=== PATIENT | female | born 1995 | race Two or more races ===

== ENCOUNTER 2018-07-26 07:29 | Emergency (ER) | END 2018-07-26 09:55 | disposition home or self-care (01) ==

== ENCOUNTER 2018-09-01 08:40 | Emergency (ER) | END 2018-09-01 17:20 | disposition short-term general hospital (02) ==

== ENCOUNTER 2018-10-25 21:16 | Emergency (ER) | END 2018-10-25 22:44 | disposition home or self-care (01) ==

== ENCOUNTER 2018-11-19 17:20 | Emergency (ER) | payer OTHER ==
[~2018-11-19] VITALS: Ht 162.6 cm; Wt 120.5 kg
[~2018-11-19 17:20] MED LIST: HYDR-4011 PO; IBUP-1542 PO; MAG355OR14 PO; OMEP20CA16 PO
[2018-11-19 17:24] VITALS: BP 148/85; PULSE 83; RESP 18; Ht 162.6 cm; Wt 120.5 kg
[2018-11-19] MEDS ORDERED: KETOROLAC 30 MG INJ IM STA (19:29)
[2018-11-19] MEDS ORDERED: CYCL10TA7 PO (19:49)
[2018-11-19] MEDS ORDERED: IBUP800T48 PO (19:49)
--- NOTE | 2018-11-19 19:54 | ERD ---
ER Documentation Chief Complaint Chief Complaint lt jaw pain radiating to lt arm x 3 hrs HPI Patient is a 23-year-old female who presents with pain in the left side of her jaw that radiates to her left upper extremity. She has had this for about a week. She did go to an outside facility and they told her likely months with multiple without any relief. No fever. No trauma. No numbness or tingling. ROS All systems reviewed and are negative except as per history of present illness. Medications Home Meds Active Scripts Ibuprofen* (Motrin*) 800 Mg Tab, 800 MG PO Q6, #30 TAB Prov:ANGELO ESCALERA PA-C 11/19/18 Cyclobenzaprine Hcl* (Cyclobenzaprine Hcl*) 10 Mg Tablet, 10 MG PO TID, #15 TAB Prov:ANGELO ESCALERA PA-C 11/19/18 Omeprazole* (Omeprazole*) 20 Mg Capsule.dr, 20 MG PO DAILY, #14 CAP Prov:GINI DAVILA MD 10/25/18 Mag Hydrox/Al Hydrox/Simeth (Maalox Advanced Suspension) 355 Ml Oral.susp, 2 TSP PO TID PRN for PAIN, #24 OZ Prov:GINI DAVILA MD 10/25/18 Hydrocodone/Acetaminophen ([place] 5-325 Tablet) 1 Each Tablet, 1 TAB PO Q6H PRN for PAIN, #7 TAB Prov:SAVANAH GARCIA PA-C 07/26/18 Ibuprofen* (Motrin*) 600 Mg Tab, 600 MG PO Q6, #30 TAB Prov:SAVANAH GARCIA PA-C 07/26/18 Allergies Allergies: Coded Allergies: No Known Allergy (Unverified , 07/26/18) PMhx/Soc History of Surgery: Yes (Cholecystectomy) Anesthesia Reaction: No Hx Neurological Disorder: No Hx Respiratory Disorders: No Hx Cardiac Disorders: No Hx Psychiatric Problems: No Hx Miscellaneous Medical Probl: Yes (GALLSTONES) Hx Alcohol Use: No Hx Substance Use: No Hx Tobacco Use: No Smoking Status: Never smoker FmHx Family History: No diabetes Physical Exam Vitals Vital Signs Date Temp Pulse Resp B/P (MAP) Pulse Ox O2 O2 Flow FiO2 Time Delivery Rate 11/19/18 99.0 83 18 148/85 98 17:24 (106) Physical Exam INITIAL VITAL SIGNS: Reviewed by me GENERAL: Awake, alert and oriented x 4, well appearing, nontoxic, speaking in full sentences. No acute distress HEAD: Atraumatic NECK: Supple. No masses. Full range of motion. No meningismus. No midline tenderness. RESPIRATORY: Clear to auscultation bilaterally. Symmetric chest wall rise. No wheezing or rales. No accessory muscle use. CV: Regular rate and rhythm. No murmurs, rubs, or gallops. Upper Extremity -left Skin: No laceration, or evidence of external trauma Compartments: Soft Motor: Full active range of motion shoulder/elbow/wrist/hand Sensation: Intact shoulder/pinky/middle finger/thumb web space Bones: Nontender humerus/elbow/forearm/wrist/hand Snuffbox: Nontender Joints: No effusion Pulses/Perfusion: 2+ radial, Capillary refill < 2 seconds Results 24 hrs Laboratory Tests Test 11/19/18 19:45 POC Beta HCG, Qualitative NEGATIVE Current Medications Medications Dose Sig/Emelia Start Time Status Last (Trade) Ordered Route PRN Stop Time Admin Dose Reason Admin Ketorolac 30 mg ONCE STAT 11/19/18 DC Tromethamine IM 19:29 (Toradol) 11/19/18 19:30 Procedures/MDM Patient is here with pain in the left side of her neck radiating to her left repair extremity. Exam is normal. I agree with what she was told at the other facility her pain is most likely musculoskeletal. She was given Toradol here and prescription for Flexeril and ibuprofen. Patient counseled regarding my diagnostic impression and care plan. Prior to discharge all questions answered. Pt agrees with treatment plan and understands strict return precautions. Pt is instructed to follow up with primary care provider within 24-48 hours. Precautionary instructions provided including instructions to return to the ER if not improving or for any worsening or changing symptoms or concerns. Departure Diagnosis: Primary Impression: Myalgia Additional Impression: Jaw pain Condition: Stable Patient Instructions: Myalgias Additional Instructions: Call your primary care doctor TOMORROW for an appointment during the next 1-2 days.See the doctor sooner or return here if your condition worsens before your appointment time. ANGELO ESCALERA PA-C Nov 19, 2018 19:54
== END 2018-11-19 20:09 | disposition home or self-care (01) ==
LOC: FTE 17:20
DX: M79.18 Myalgia, other site (principal)
CPT/HCPCS: 81025; 96372; J1885; Z7502

== ENCOUNTER 2019-03-16 08:14 | Emergency (ER) | payer OTHER ==
[~2019-03-16] VITALS: Ht 165.1 cm; Wt 122.4 kg
[~2019-03-16 08:14] MED LIST changes: +CYCL10TA7 PO; +IBUP800T48 PO
[2019-03-16 08:20] VITALS: Ht 165.1 cm; Wt 122.4 kg
[2019-03-16] MEDS ORDERED: SOD CHLORIDE 0.9% 1,000 ML IV STA (09:34)
[2019-03-16] MEDS ORDERED: ONDANSETRON 4 MG INJ IV STA (09:34)
[2019-03-16] MEDS ORDERED: KETOROLAC 30 MG INJ IV STA (09:34)
[2019-03-16] MEDS ORDERED: FAMOTIDINE 20 MG INJ IV STA (09:34)
[2019-03-16] MEDS ORDERED: HYDR-4011 PO (10:42)
[2019-03-16] MEDS ORDERED: FAMO-96 PO (10:42)
[2019-03-16 11:47] VITALS: BP 124/71; PULSE 70; RESP 16
--- NOTE | 2019-03-16 14:12 | ERD ---
ER Documentation Chief Complaint Chief Complaint upper abdominal pain this morning, + nausea HPI 23-year-old female presenting with abdominal pain this morning with nausea. Patient has some epigastric pain. She has had a history of cholecystectomy and states that her pain today is similar. She denies any chest pain or shortness of breath. Denies fevers. Took Tums yesterday but no medications today. Has nausea but no vomiting. Patient has diarrhea. Denies medical problems. NKDA. Surgical history cholecystectomy. Social history denies ROS All systems reviewed and are negative except as per history of present illness. Medications Home Meds Active Scripts Hydrocodone/Acetaminophen ([place] 5-325 Tablet) 1 Each Tablet, 1 TAB PO Q6H PRN for PAIN, #7 TAB Prov:DALLAS JIMENEZ PA-C 03/16/19 Famotidine* (Pepcid*) 20 Mg Tablet, 20 MG PO BID for 4 Days, #30 TAB Prov:DALLAS JIMENEZ PA-C 03/16/19 Ibuprofen* (Motrin*) 800 Mg Tab, 800 MG PO Q6, #30 TAB Prov:ANGELO ESCALERA PA-C 11/19/18 Cyclobenzaprine Hcl* (Cyclobenzaprine Hcl*) 10 Mg Tablet, 10 MG PO TID, #15 TAB Prov:ANGELO ESCALERA PA-C 11/19/18 Omeprazole* (Omeprazole*) 20 Mg Capsule.dr, 20 MG PO DAILY, #14 CAP Prov:GINI DAVILA MD 10/25/18 Mag Hydrox/Al Hydrox/Simeth (Maalox Advanced Suspension) 355 Ml Oral.susp, 2 TSP PO TID PRN for PAIN, #24 OZ Prov:GINI DAVILA MD 10/25/18 Hydrocodone/Acetaminophen ([place] 5-325 Tablet) 1 Each Tablet, 1 TAB PO Q6H PRN for PAIN, #7 TAB Prov:SAVANAH GARCIA PA-C 07/26/18 Ibuprofen* (Motrin*) 600 Mg Tab, 600 MG PO Q6, #30 TAB Prov:SAVANAH GARCIA PA-C 07/26/18 Allergies Allergies: Coded Allergies: No Known Allergy (Unverified , 07/26/18) PMhx/Soc History of Surgery: Yes (Cholecystectomy) Anesthesia Reaction: No Hx Neurological Disorder: No Hx Respiratory Disorders: No Hx Cardiac Disorders: No Hx Psychiatric Problems: No Hx Miscellaneous Medical Probl: Yes (GALLSTONES) Hx Alcohol Use: No Hx Substance Use: No Hx Tobacco Use: No FmHx Family History: No diabetes, No coronary disease, No other Physical Exam Vitals Vital Signs Date Temp Pulse Resp B/P (MAP) Pulse Ox O2 O2 Flow FiO2 Time Delivery Rate 03/16/19 98.1 70 16 124/71 96 Room Air 11:47 (88) 03/16/19 98.7 70 18 134/66 99 08:20 (88) Physical Exam GENERAL: The patient is well-appearing, well-nourished, in no acute distress CHEST: Clear to auscultation bilaterally. There are no rales, wheezes or rhonchi. HEART: Regular rate and rhythm. No murmurs, clicks, rubs or gallops. ABDOMEN: Normal active bowel sounds. No distention. No organomegaly. Tender to palpation in the epigastric region with no rebound tenderness. Result Diagram: 03/16/19 0956 03/16/19 0956 Results 24 hrs Laboratory Tests Test 03/16/19 09:56 03/16/19 10:02 White Blood Count 12.2 10^3/ul Red Blood Count 4.74 10^6/ul Hemoglobin 11.7 g/dl Hematocrit 37.7 % Mean Corpuscular Volume 79.5 fl Mean Corpuscular Hemoglobin 24.7 pg Mean Corpuscular Hemoglobin Concent 31.0 g/dl Red Cell Distribution Width 16.0 % Platelet Count 369 10^3/UL Mean Platelet Volume 9.3 fl Immature Granulocytes % 0.500 % Neutrophils % 64.4 % Lymphocytes % 28.7 % Monocytes % 4.6 % Eosinophils % 1.4 % Basophils % 0.4 % Nucleated Red Blood Cells % 0.0 /100WBC Immature Granulocytes # 0.060 10^3/ul Neutrophils # 7.8 10^3/ul Lymphocytes # 3.5 10^3/ul Monocytes # 0.6 10^3/ul Eosinophils # 0.2 10^3/ul Basophils # 0.1 10^3/ul Nucleated Red Blood Cells # 0.0 10^3/ul Urine Color STRAW Urine Clarity CLEAR Urine pH 7.0 Urine Specific [place] 1.009 Urine Ketones NEGATIVE mg/dL Urine Nitrite NEGATIVE mg/dL Urine Bilirubin NEGATIVE mg/dL Urine Urobilinogen NEGATIVE mg/dL Urine Leukocyte Esterase 1+ Phan/ul Urine Microscopic RBC 1 /HPF Urine Microscopic WBC 8 /HPF Urine Squamous Epithelial Cells FEW /HPF Urine Bacteria FEW /HPF Urine Hemoglobin NEGATIVE mg/dL Urine Glucose NEGATIVE mg/dL Urine Total Protein NEGATIVE mg/dl Sodium Level 141 mmol/L Potassium Level 4.3 mmol/L Chloride Level 104 mmol/L Carbon Dioxide Level 27 mmol/L Anion Gap 10 Blood Urea Nitrogen 9 mg/dl Creatinine 0.54 mg/dl Est Glomerular Filtrat Rate mL/min > 60 mL/min Glucose Level 120 mg/dl Calcium Level 9.4 mg/dl Total Bilirubin 0.3 mg/dl Direct Bilirubin 0.00 mg/dl Indirect Bilirubin 0.3 mg/dl Aspartate Amino Transf (AST/SGOT) 40 IU/L Alanine Aminotransferase (ALT/SGPT) 46 IU/L Alkaline Phosphatase 111 IU/L Total Protein 8.4 g/dl Albumin 4.3 g/dl Globulin 4.10 g/dl Albumin/Globulin Ratio 1.04 Lipase 58 U/L POC Beta HCG, Qualitative NEGATIVE Current Medications Medications Dose Sig/Emelia Start Time Status Last (Trade) Ordered Route PRN Stop Time Admin Dose Reason Admin Sodium 1,000 ml @ Q1H STAT 03/16/19 DC 03/16/19 Chloride 1,000 mls/hr IV 09:34 10:04 03/16/19 10:33 Ondansetron 4 mg ONCE STAT 03/16/19 DC 03/16/19 HCl (Zofran IV 09:34 10:05 Inj) 03/16/19 09:36 Famotidine 20 mg ONCE STAT 03/16/19 DC 03/16/19 (Pepcid Iv) IV 09:34 10:05 03/16/19 09:36 Ketorolac 30 mg ONCE STAT 03/16/19 DC 03/16/19 Tromethamine IV 09:34 10:48 (Toradol) 03/16/19 09:36 Procedures/MDM DIAGNOSTIC IMAGING REPORT Patient: HAILEY PALACIOS : 1995 Age: 23 Sex: F MR #: [id number] DOS: 03/16/19 0934 Ordering MD: TATUM JIMENEZ PA-C Location: [facility] Room/Bed: PROCEDURE: US Abdomen. CLINICAL INDICATION: abdominal pain TECHNIQUE: Multiple real-time images were acquired of the patient's right upper quadrant abdomen and retroperitoneum utilizing a high resolution transducer. COMPARISON: US ABDOMEN 09/01/2018 FINDINGS: The liver demonstrates increased echogenicity. The liver is enlarged in size and no focal solid lesions are seen. The liver measures 19.7 cm in length. The portal vein is patent with normal direction of flow. No intrahepatic biliary dilatation is seen. The patient is status post cholecystectomy. The common bile duct measures 6 mm in maximal dimension. The pancreas is not well seen due to overlying bowel gas. No free fluid is identified. The right kidney is normal in size, and demonstrate normal echogenicity and cortical thickness. The right kidney measures 11.1 cm in long dimension. There is no evidence of hydronephrosis. There are no kidney stones. RPTAT: AA IMPRESSION: Hepatomegaly with diffuse fatty infiltration of the liver. Status post cholecystectomy with physiologic dilatation of the CBD. MDM: 23-year-old female presenting with epigastric pain. Patient's blood work is within normal limits. I have low suspicion for abnormality associated with common bile duct or pancreas. Patient's blood work and imaging is within normal limits. Patient likely has GERD. Patient's symptoms had resolved on my evaluation. Patient is discharged with strict ER precautions and told to follow-up with primary care within 1 to 2 days for close evaluation. Patient is told if symptoms change or worsen to return immediately to the ER. All questions answered at discharge Departure Diagnosis: Primary Impression: Epigastric pain Condition: Stable Patient Instructions: Epigastric Pain (Uncertain Cause) Referrals: [facility] YOU HAVE RECEIVED A MEDICAL SCREENING EXAM AND THE RESULTS INDICATE THAT YOU DO NOT HAVE A CONDITION THAT REQUIRES URGENT TREATMENT IN THE EMERGENCY DEPARTMENT. FURTHER EVALUATION AND TREATMENT OF YOUR CONDITION CAN WAIT UNTIL YOU ARE SEEN IN YOUR DOCTORS OFFICE WITHIN THE NEXT 1-2 DAYS. IT IS YOUR RESPONSIBILITY TO M OLEG AN APPOINTMENT FOR FOLOW-UP CARE. IF YOU HAVE A PRIMARY DOCTOR --you should call your primary doctor and schedule an appointment IF YOU DO NOT HAVE A PRIMARY DOCTOR YOU CAN CALL OUR PHYSICIAN REFERRAL HOTLINE AT IF YOU CAN NOT AFFORD TO SEE A PHYSICIAN YOU CAN CHOSE FROM THE FOLLOWING [facility] [address] [facility]. [facility] [address] [facility] [address] [facility] [address] [facility] [address] [facility] [facility] [address] Additional Instructions: FOLLOW UP WITH YOUR PRIMARY CARE PHYSICIAN TOMORROW.Return to this facility if you are not improving as expected. DALLAS JIMENEZ PA-C March 16, 2019 14:12
== END 2019-03-16 11:48 | disposition home or self-care (01) ==
LOC: FTE 08:14
DX: R10.13 Epigastric pain (principal); R11.0 Nausea
CPT/HCPCS: 36415; 76705; 80053; 81001; 81025; 83690; 85025; 96374; 96375; J1885; J2405; J7030; Z7502; Z7610

== ENCOUNTER 2019-03-23 20:16 | Emergency (ER) | payer OTHER ==
[~2019-03-23] VITALS: Ht 167.6 cm; Wt 120.8 kg
[~2019-03-23 20:16] MED LIST changes: +FAMO-96 PO
[2019-03-23 20:20] VITALS: Ht 167.6 cm; Wt 120.8 kg
[2019-03-23] MEDS ORDERED: RANITIDINE 150 MG TAB PO ONE (23:30)
[2019-03-23] MEDS ORDERED: LIDOCAINE/MYLANTA 40 ML BTL PO ONE (23:30)
[2019-03-24] MEDS ORDERED: OMEP20CA16 PO (00:27)
[2019-03-24] MEDS ORDERED: RANI150T35 PO (00:27)
[2019-03-24 00:45] VITALS: BP 130/77; PULSE 84; RESP 19
--- NOTE | 2019-03-24 05:42 | ERD ---
ER Documentation Chief Complaint Chief Complaint CWP/ FEELING OF LUMP IN THROAT; RECENT DX ACID REFLUX HPI 23-year-old female with past medical history of GERD presenting to the emergency department with complaints of left upper chest pain with radiation to her throat for the past 2 days. She states she feels "something stuck" in the throat. Pain is intermittent. She has no pain currently. She feels significant burning in her chest and throat. She has been taking omeprazole at home with mild relief. She denies any nausea, vomiting, abdominal pain, fevers, or other symptoms at this time. ROS All systems reviewed and are negative except as per history of present illness. Medications Home Meds Active Scripts Ranitidine Hcl* (Zantac*) 150 Mg Tablet, 150 MG PO BID PRN for EPIGASTRIC PAIN, #30 TAB Prov:PAPA DOE PA-C 03/24/19 Omeprazole* (Omeprazole*) 20 Mg Capsule., 20 MG PO DAILY, #20 Prov:PAPA DOE PA-C 03/24/19 Hydrocodone/Acetaminophen ([place] 5-325 Tablet) 1 Each Tablet, 1 TAB PO Q6H PRN for PAIN, #7 TAB Prov:DALLAS JIMENEZ PA-C 03/16/19 Famotidine* (Pepcid*) 20 Mg Tablet, 20 MG PO BID for 4 Days, #30 TAB Prov:DALLAS JIMENEZ PA-C 03/16/19 Ibuprofen* (Motrin*) 800 Mg Tab, 800 MG PO Q6, #30 TAB Prov:ANGELO ESCALERA PA-C 11/19/18 Cyclobenzaprine Hcl* (Cyclobenzaprine Hcl*) 10 Mg Tablet, 10 MG PO TID, #15 TAB Prov:ANGELO ESCALERA PA-C 11/19/18 Omeprazole* (Omeprazole*) 20 Mg Capsule., 20 MG PO DAILY, #14 CAP Prov:GINI DAVILA MD 10/25/18 Mag Hydrox/Al Hydrox/Simeth (Maalox Advanced Suspension) 355 Ml Oral.susp, 2 TSP PO TID PRN for PAIN, #24 OZ Prov:GINI DAVILA MD 10/25/18 Hydrocodone/Acetaminophen ([place] 5-325 Tablet) 1 Each Tablet, 1 TAB PO Q6H PRN for PAIN, #7 TAB Prov:GAYLE GARCIACASSIDY CABRERA 07/26/18 Ibuprofen* (Motrin*) 600 Mg Tab, 600 MG PO Q6, #30 TAB Prov:SAVANAH GARCIA DEBORAH 07/26/18 Allergies Allergies: Coded Allergies: No Known Allergy (Unverified , 07/26/18) PMhx/Soc History of Surgery: Yes (Cholecystectomy) Anesthesia Reaction: No Hx Neurological Disorder: No Hx Respiratory Disorders: No Hx Cardiac Disorders: No Hx Psychiatric Problems: No Hx Miscellaneous Medical Probl: Yes (GALLSTONES) Hx Alcohol Use: No Hx Substance Use: No Hx Tobacco Use: No FmHx Family History: No diabetes Physical Exam Vitals Vital Signs Date Temp Pulse Resp B/P (MAP) Pulse Ox O2 O2 Flow FiO2 Time Delivery Rate 03/24/19 98.2 84 19 130/77 100 Room Air 00:45 (94) 03/23/19 98.1 94 18 150/81 99 20:20 (104) Physical Exam Const: No acute distress Head: Atraumatic Eyes: Normal Conjunctiva ENT: Normal External Ears, Nose and Mouth. Neck: Full range of motion. No meningismus. Resp: Clear to auscultation bilaterally Cardio: Regular rate and rhythm, no murmurs Abd: Soft, non tender, non distended. Normal bowel sounds. No rebound tenderness or guarding. No McBurney's point tenderness. Skin: No petechiae or rashes Back: No midline or flank tenderness Ext: No cyanosis, or edema Neur: Awake and alert Psych: Normal Mood and Affect Results 24 hrs Current Medications Medications Dose Sig/Emelia Start Time Status Last (Trade) Ordered Route PRN Stop Time Admin Dose Reason Admin Ranitidine 150 mg ONCE ONCE 03/23/19 DC 03/23/19 HCl PO 23:30 23:31 (Zantac) 03/23/19 23:31 40 ml ONCE ONCE 03/23/19 DC 03/23/19 Miscellaneous PO 23:30 23:09 Medication 03/23/19 23:31 (Gi Cocktail (2)) [address] [address] Radiology Main Line: [phone] DIAGNOSTIC IMAGING REPORT Patient: HAILEY PALACIOS : 1995 Age: 23 Sex: F MR #: [id number] DOS: 03/23/19 0000 Ordering MD: PAPA DOE PA-C Location: [facility] Room/Bed: PROCEDURE: Portable chest x-ray. CLINICAL INDICATION: Chest pain. TECHNIQUE: Portable AP view of the chest. COMPARISON: None. FINDINGS: No pulmonary edema or conolidation is identified. The cardiac silhouette is magnified. No pleural effusion is seen. There is no pneumothorax. IMPRESSION: No evidence of acute cardiopulmonary disease. RPTAT: HTAR .Sathish Fernández MD, Date Time Electronically viewed and signed by .Sathish Fernández MD, MD on 03/23/2019 23:54 .R/ CC: PAPA DOE PA-C [id number] [place] [address] Radiology Main Line: [phone] DIAGNOSTIC IMAGING REPORT Patient: HAILEY PALACIOS : 1995 Age: 23 Sex: F MR #: [id number] DOS: 03/23/19 0000 Ordering MD: PAPA DOE PA-C Location: [facility] Room/Bed: PROCEDURE: X-ray neck CLINICAL INDICATION: Foreign body sensation in the throat. TECHNIQUE: AP and lateral views of the neck. COMPARISON: None available FINDINGS: The aerodigestive tract is normal. No radiopaque foreign body is identified. There is no prevertebral soft tissue swelling. The cervical spine is unremarkable. IMPRESSION: Normal appearance of the aerodigestive tract. No radiopaque foreign body. RPTAT: HTAR .Sathish Fernández MD, MD Date Time Electronically viewed and signed by .Sathish Fernández MD, on 03/23/2019 23:53 .R/ CC: PAPA DOE PA-C [id number] Procedures/MDM 23-year-old female presenting to the emergency department with signs and symptoms most consistent with chest wall pain versus GERD. Chest x-ray negative for any signs of infiltrate or other abnormalities per the patient was administered ranitidine and GI cocktail with significant improvement of her symptoms. EKG: Interpreted by ED physician. Rate/Rhythm: Normal Sinus Rhythm with a rate of [address]pm[address] QRS, ST, T-waves: No changes consistent w/ acute ischemia Impression: No evidence of ischemia or arrhythmia Patient's thoracic symptoms have stabilized while in the department and are stable for outpatient follow up. Exam and work up not consistent w/ ischemia, arrhythmia, PE or dissection. No evidence of life-threatening pathology at time of discharge. Pt/family in agreement with discharge plan/diagnosis. Pt/family advised to return immediately with any new or worsening symptoms. Follow-up with primary care physician within the next 1-2 days. Patient's blood pressure was elevated (>120/80) but appears stable without evidence of hypertension emergency or urgency. The patient is to follow-up and pursue outpatient monitoring and therapy with their primary care physician within 1 week and return immediately if they have any new, worsening, or concerning symptoms. Disclaimer: Inadvertent spelling and grammatical errors are likely due to EHR/dictation software use and do not reflect on the overall quality of patient care. Also, please note that the electronic time recorded on this note does not necessarily reflect the actual time of the patient encounter. Departure Diagnosis: Primary Impression: Chest wall pain Additional Impression: GERD (gastroesophageal reflux disease) Condition: Fair Patient Instructions: Chest Wall Pain, Costochondritis, Gerd (Adult) Additional Instructions: Call your primary care doctor TOMORROW for an appointment during the next 1-2 days.See the doctor sooner or return here if your condition worsens before your appointment time. PAPA DOE PA-C March 24, 2019 05:42
== END 2019-03-24 00:47 | disposition home or self-care (01) ==
LOC: FTE 20:16
DX: K21.9 Gastro-esophageal reflux disease without esophagitis (principal)
CPT/HCPCS: 70360; 71045; 93005; Z7502; Z7610

== ENCOUNTER 2019-05-18 19:23 | Emergency (ER) | payer OTHER ==
[~2019-05-18] VITALS: Ht 165.1 cm; Wt 122.2 kg
[~2019-05-18 19:23] MED LIST changes: +RANI150T35 PO
[2019-05-18 19:26] VITALS: Ht 165.1 cm; Wt 122.2 kg
[2019-05-18] MEDS ORDERED: IBUPROFEN 800 MG TAB PO ONE (20:00)
[2019-05-18] MEDS ORDERED: NICARDipine HCL 30 MG CAPSULE PO ONE (20:00)
[2019-05-18] MEDS ORDERED: IBUP-1542 PO (21:08)
--- NOTE | 2019-05-18 21:12 | ERD ---
ER Documentation Chief Complaint Chief Complaint CP, L SHOULDER PAIN, JAW PAIN, SOB X'S 1 WEEK HPI Patient is a 23-year-old female with anxiety who presents saying that she is "not feeling well". She said that this is been there for 1 week. She said that she has chest pain after eating. She felt pain in her jaw and shoulder as well. She had no treatment as of yet. She has no fevers. Upon review of old medical records this is the patient's seventh visit to the ER since July 2018. Review of the emergency department information exchange system shows visits to 2 separate emergency departments for a total of 9 visits over the past 1 year. She says that she does have a primary doctor in [place]. ROS All systems reviewed and are negative except as per history of present illness. Medications Home Meds Active Scripts Ibuprofen* (Motrin*) 600 Mg Tab, 600 MG PO Q6H PRN for PAIN AND OR ELEVATED TEMP, #30 TAB Prov:ISAEL GUERRA MD 05/18/19 Discontinued Scripts Ranitidine Hcl* (Zantac*) 150 Mg Tablet, 150 MG PO BID PRN for EPIGASTRIC PAIN, #30 TAB Prov:PAPA DOE PA-C 03/24/19 Omeprazole* (Omeprazole*) 20 Mg Capsule., 20 MG PO DAILY, #20 Prov:PAPA DOE PA-C 03/24/19 Hydrocodone/Acetaminophen ([place] 5-325 Tablet) 1 Each Tablet, 1 TAB PO Q6H PRN for PAIN, #7 TAB Prov:DALLAS JIMENEZ PA-C 03/16/19 Famotidine* (Pepcid*) 20 Mg Tablet, 20 MG PO BID for 4 Days, #30 TAB Prov:DALLAS JIMENEZ PA-C 03/16/19 Ibuprofen* (Motrin*) 800 Mg Tab, 800 MG PO Q6, #30 TAB Prov:ANGELO ESCALERA PA-C 11/19/18 Cyclobenzaprine Hcl* (Cyclobenzaprine Hcl*) 10 Mg Tablet, 10 MG PO TID, #15 TAB Prov:ANGELO ESCALERA PA-C 11/19/18 Omeprazole* (Omeprazole*) 20 Mg Capsule., 20 MG PO DAILY, #14 CAP Prov:GINI DAVILA MD 10/25/18 Mag Hydrox/Al Hydrox/Simeth (Maalox Advanced Suspension) 355 Ml Oral.susp, 2 TSP PO TID PRN for PAIN, #24 OZ Prov:GINI DAVILA MD 10/25/18 Hydrocodone/Acetaminophen ([place] 5-325 Tablet) 1 Each Tablet, 1 TAB PO Q6H PRN f or PAIN, #7 TAB Prov:SAVANAH GARCIA PA-C 07/26/18 Ibuprofen* (Motrin*) 600 Mg Tab, 600 MG PO Q6, #30 TAB Prov:SAVANAH GARCIA PA-C 07/26/18 Allergies Allergies: Coded Allergies: No Known Allergy (Unverified , 05/18/19) PMhx/Soc History of Surgery: Yes (Cholecystectomy) Anesthesia Reaction: No Hx Neurological Disorder: No Hx Respiratory Disorders: No Hx Cardiac Disorders: No Hx Psychiatric Problems: No Hx Miscellaneous Medical Probl: Yes (GALLSTONES) Hx Alcohol Use: No Hx Substance Use: No Hx Tobacco Use: No Smoking Status: Never smoker FmHx Family History: No coronary disease Physical Exam Vitals Vital Signs Date Temp Pulse Resp B/P (MAP) Pulse Ox O2 O2 Flow FiO2 Time Delivery Rate 05/18/19 98.0 87 18 119/80 99 Room Air 21:15 (93) 05/18/19 76 18 127/74 99 Room Air 19:56 (91) 05/18/19 98.8 102 20 166/99 96 19:26 (121) Physical Exam Const: No acute distress Head: Atraumatic Eyes: Normal Conjunctiva ENT: Normal External Ears, Nose and Mouth. Neck: Full range of motion. No meningismus. Resp: Clear to auscultation bilaterally Cardio: Regular rate and rhythm, no murmurs Abd: Soft, non tender, non distended. Normal bowel sounds Skin: No petechiae or rashes Back: No midline or flank tenderness Ext: No cyanosis, or edema Neur: Awake and alert Psych: Normal Mood and Affect Results 24 hrs Laboratory Tests Test 05/18/19 20:09 POC Beta HCG, Qualitative NEGATIVE Current Medications Medications Dose Sig/Emelia Start Time Status Last (Trade) Ordered Route PRN Stop Time Admin Dose Reason Admin Ibuprofen 800 mg ONCE ONCE 05/18/19 DC 05/18/19 (Motrin) PO 20:00 20:20 05/18/19 20:01 Nicardipine 30 mg ONCE ONCE 05/18/19 DC HCl PO 20:00 (Cardene) 05/18/19 20:01 Procedures/MDM EKG read by me: Rate/Rhythm: Regular rate and rhythm at a rate of 92 Intervals: Normal Impression: No evidence of ischemia or arrhythmia Chest X-ray 1V Interpreted by me: Soft Tissue: No acute abnormalities Bones: No acute abnormalities Mediastinum/Cardiac Silhouette/Lungs: No acute abnormalities Patient is a 23-year-old female with anxiety who presents with chest pain. EKG and chest x-ray were negative. test was negative. At this point I doubt acute coronary syndrome, pneumonia, pneumothorax, pulmonary embolism, or aortic dissection. I believe outpatient management is appropriate but the patient will need close follow-up with her primary doctor within 24 to 48 hours. She will be given ibuprofen for pain. Departure Diagnosis: Primary Impression: Chest pain Chest pain type: unspecified Qualified Codes: R07.9 - Chest pain, unspecified Condition: Fair Patient Instructions: Chest Pain, Uncertain Cause Referrals: Your doctor Additional Instructions: Call your primary care doctor TOMORROW for an appointment during the next 1-2 days.See the doctor sooner or return here if your condition worsens before your appointment time. ISAEL GUERRA MD May 18, 2019 21:12
[2019-05-18 22:06] VITALS: BP 114/73; PULSE 82; RESP 28
== END 2019-05-18 22:06 | disposition home or self-care (01) ==
LOC: E/R 19:23
DX: R07.9 Chest pain, unspecified (principal)
CPT/HCPCS: 71045; 81025; 93005; Z7502; Z7610